=== PATIENT | male | born 1945 | race Caucasian/White ===

== ENCOUNTER 2016-07-06 07:06 | Day surgery (SDC) | payer MEDICARE ==
[2016-07-06] MEDS ORDERED: Lactated Ringer's 500 ML IV ONE (07:45)
[2016-07-06 08:05] VITALS: BMI 33.1
[2016-07-06] MEDS ORDERED: Propofol 10 mg/ml Inj (20 ML) ONE (08:15)
[2016-07-06 08:55] VITALS: TEMP 98; O2SAT 98
[2016-07-06 09:06] VITALS: BP 110/77; PULSE 78; RESP 14
== END 2016-07-06 09:10 | disposition home or self-care (01) ==
LOC: H.ENDO 07:06
PROVIDERS: ATTEND Internal Medicine Gastroenterology
DX: Z12.11 Encounter for screening for malignant neoplasm of colon (principal); I10 Essential (primary) hypertension; I25.10 Atherosclerotic heart disease of native coronary artery without angina pectoris; K64.8 Other hemorrhoids
CPT/HCPCS: 45378; J2704; J7120